=== PATIENT | female | born 1960 | race Caucasian/White ===

== ENCOUNTER 2019-11-30 21:08 | Inpatient (IN) | payer SELFPAY ==
--- NOTE | 2019-11-30 21:17 | XRR_ITS ---
PROCEDURE INFORMATION: Exam: XR Chest, 1 View Exam date and time: 11/30/2019 9:29 PM Age: 58 years old Clinical indication: Chest pain; Type not specified; Additional info: Cough, chest pain, od TECHNIQUE: Imaging protocol: XR of the chest Views: 1 view. COMPARISON: No relevant prior studies available. FINDINGS: Lungs: No lung consolidation or pulmonary edema. Pleural space: No pleural effusion or pneumothorax. Heart/Mediastinum: The cardiac silhouette is not enlarged. The mediastinal contours are normal. Bones/joints: No acute osseous abnormality. XR/XR chest 1V portable [id number] IMPRESSION: No acute abnormality.
--- NOTE | 2019-11-30 21:18 | ECG_ITS ---
Measurements Intervals [place] Rate: 61 P: 65 MT: 184 QRS: 58 QRSD: 90 T: 58 QT: 443 QTc: 446 SINUS RHYTHM No previous ECG available for comparison Electronically Signed On 12-01-2019 10:01:57 CDT by Bhavin Ward M.D. [id number]
--- NOTE | 2019-11-30 21:39 | W.ED.OVERDOS ---
HPI - Overdose General: Chief Complaint: Overdose Stated Complaint: OVERDOSE Time Seen by Provider: 11/30/19 21:10 History of Present Illness: HPI Narrative: Barbara is a 58-year-old female who comes in after she overdosed on trazodone. It is believed she may have taken as many as 1750 mg trazodone tablets. Initially EMS said the patient took these because she had not slept in 48 hours but when asked the patient tried to hurt herself she says yes I wish they would have let me go to sleep and never wake up. I just want to . Patient missed 2 previous suicide attempt in the past. When asked if she mix this with any other medicines or alcohol she states no. When asked what her reason is for taking this she states I do not want to talk about it . 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 Physical Exam Const: COMMON NORMALS: no apparent distress, oriented x3, no limitations, healthy appearing and well nourished EXAM LIMITATIONS: no altered mental status GENERAL APPEARANCE: cooperative, well kempt and well developed ORIENTATION/CONSCIOUSNESS: Yes awake HENMT: COMMON NORMALS: normocephalic, head/scalp atraumatic, hearing grossly normal bilaterally, external ears normal, EAC's normal, external nose normal and moist oral mucous membranes HEAD & SCALP: normal to inspection, normocephalic and atraumatic FACE & SINUS: normal facial exam and face symmetric NOSE: external nose normal and nares normal EXTERNAL EAR: Yes external ears normal EXTERNAL AUDITORY CANAL: EAC's normal MOUTH: oral and palatal mucosa normal and tongue normal Eye: COMMON NORMALS: PERRL, EOMs intact bilaterally, conjunctivae normal and no scleral icterus GENERAL EYE: normal appearance of both eyes and normal light reflex CONJUNCTIVA: Yes conjunctivae normal SCLERA: sclerae normal CORNEA: Yes corneas normal PUPIL: Yes PERRL DIRECT OPHTHALMOSCOPY: Yes normal light reflex Neck/C-Spine: COMMON NORMALS: full ROM, no lymphadenopathy, supple, no meningeal signs and no JVD GENERAL: Yes normal visual inspection and Yes trachea midline CERVICAL SPINE: Yes cervical ROM normal Chest: COMMONS NORMALS: inspection of chest normal and palpation of chest normal Resp: COMMON NORMALS: normal respiratory effort, no retractions, no use of accessory muscles and clear to auscultation bilaterally EFFORT & INSPECTION: Yes able to speak in complete sentences AUSCULTATION: clear to auscultation bilaterally Cardio: COMMON NORMALS: no JVD, regular rate, regular rhythm, S1 normal heart sound, S2 normal heart sound, no gallops, no clicks, no murmurs and no rub JUGULAR VENOUS DISTENTION: no JVD RATE: regular rate RHYTHM: regular rhythm HEART SOUNDS: S1 normal and S2 normal GI: COMMON NORMALS: soft to palpation, non-tender, no hepatosplenomegaly and no masses INSPECTION: Yes normal to inspection PALPATION: Yes soft and Yes no hepatosplenomegaly : COMMON NORMALS: Yes no CVA tenderness BLADDER/KIDNEY EXAM: Yes no CVA tenderness Back/Pelvis: COMMON NORMALS: no CVA tenderness, thoracic and lumbar spine normal to inspection, no thoracic nor lumbar tenderness and thoraco-lumbar ROM normal Extremity: COMMON NORMALS: normal to inspection, full ROM, normal capillary refill, no joint enlargement, no clubbing, cyanosis or edema and no calf tenderness Neuro: COMMON NORMALS: oriented x3, CN's II-XII intact bilaterally, moves all extremities, no focal motor deficits and no sensory deficits noted MENINGEAL SIGNS: Yes no meningeal signs Psych: COMMON NORMALS: mental status grossly normal, thought process normal, cooperative, affect normal, speech normal and activity/motor behavior normal APPEARANCE: Yes well kempt SPEECH: Yes normal speech THOUGHT PROCESS: normal thought process Skin: COMMON NORMALS: no rashes or lesions noted, skin turgor normal, no jaundice, no petechiae and no mottling GENERAL SKIN EXAM: no rashes or lesions noted and turgor normal Course Vital Signs: Vital signs: Vital Signs Temperature 98.4 F 11/30/19 21:47 Pulse Rate 66 11/30/19 23:29 Respiratory Rate 18 11/30/19 23:29 Blood Pressure 103/71 11/30/19 23:29 Pulse Oximetry 95 11/30/19 23:29 MDM - Overdose MDM Narrative: Medical decision making narrative: The case was reviewed with poison control. They recommend observation as the patient was taken almost twice the upper limits of allowed dose. Patient remains with a GCS of 15 here. So far she has not shown any sign of QT prolongation, central nervous system depression, serotonin syndrome or seizures. Lab Data: Attestation: I reviewed the patient's lab results. Labs: Lab Results 11/30/19 11/30/19 11/30/19 Range/Units 19:44 21:24 21:24 WBC (4.0-10.0) 10^3/ uL RBC (4.1-5.3) 10^6/u L Hgb (11.5-15.3) g/dL Hct (37.0-47.0) % MCV (81-99) fL MCH (28.0-34.0) pg MCHC (30.0-36.0) g/dL RDW (12.1-15.1) % Plt Count (130-400) 10^3/c mm MPV (7.4-10.4) fL Neut % (Auto) % Lymph % (Auto) % [place] % (Auto) % Eos % (Auto) % Baso % (Auto) % Neut # (Auto) (1.8-7.7) 10^3/u L Lymph # (Auto) (0.8-4.8) 10^3/u L [place] # (Auto) (0.2-0.9) 10^3/u L Eos # (Auto) (0.0-0.8) 10^3/u L Baso # (Auto) (0.0-0.1) 10^3/u L Nucleated RBC % (a uto) % Nucleated RBCs # /100WBC Specimen Type Arterial Sample Site Radial, left ABG pH 7.38 (7.35-7.45) ABG pCO2 40.2 (35-45) mmHg ABG pO2 66.3 L (80.0-100.0) mmH g ABG HCO3 23.5 (22-26) mmol/L ABG Base Excess -1.6 (-2.0-2.0) mmol/ L Mariano Test Pos Hematocrit 38.9 (37-47) % O2 Delivery Device Room air Hand Cooper Helper ID harkr Sodium 136 (136-145) mmol/L Potassium 3.4 L (3.5-5.1) mmol/L Chloride 98 (98-107) mmol/L Carbon Dioxide 23 (22-29) mmol/L Anion Gap 18.4 (5-19) BUN 11 (6-20) mg/dL Creatinine 0.7 (0.5-0.9) mg/dL GFR Calculation 86.2 L (90-130) mL/min Glucose 92 (65-115) mg/dL Calculated Osmolal ity 278 L (285-295) mOsm/k g Calcium 9.1 (8.5-10.5) mg/dL Magnesium 2.3 (1.7-2.3) mg/dL Total Bilirubin 0.2 (0.15-1.2) mg/dL AST 14 (0-32) U/L ALT 12 (0-33) U/L Alkaline Phosphata se 87 (35-105) IU/L Ammonia (11-51) umol/L Creatine Kinase 92 (26-192) U/L Troponin T Baselin e (0-10) ng/mL Total Protein 6.9 (6.6-8.7) g/dL Albumin 4.6 (3.5-5.2) g/dL Globulin 2.3 (1.3-4.6) g/dL TSH 1.09 (0.27-4.20) uIU/ mL HCG, Qual (Negative) Urine Color (Yellow) Urine Appearance (CLEAR) Urine pH (5-7) Ur Specific Gravit y (1.005-1.030) Urine Protein (Negative) Urine Glucose (UA) (Normal) Urine Ketones (Negative) Urine Blood (Negative) Urine Nitrate (Negative) Urine Bilirubin (NEGATIVE) Urine Urobilinogen (Negative) mg/dL Ur Leukocyte Opal ase (Negative) Urine RBC (0-2) /hpf Urine WBC (0-5) /hpf Ur Squamous Epith Cells (0-5) Urine Bacteria (NONE) Salicylates < 0.3 L (3-10) mg/dL Urine Opiates Scre en (Negative) ng/mL Acetaminophen < 5.0 L (10-30) ug/mL Ur Barbiturates Sc reen (Negative) ng/mL Phenytoin 0.8 L (10-20) ug/mL Valproic Acid 2.8 L (50-100) mcg/mL Carbamazepine 2.0 L (4.0-12.0) ug/mL Ur Phencyclidine S crn (Negative) ng/mL Ur Amphetamines Sc reen (Negative) ng/mL U Benzodiazepines Scrn (Negative) ng/mL [place] 0.1 L (0.6-1.2) mmol/L Urine Cocaine Scre en (Negative) ng/mL U Marijuana (THC) Screen (Negative) ng/mL Ethyl Alcohol 156 H (0-10) mg/dL 11/30/19 11/30/19 11/30/19 Range/Units 21:24 21:24 21:24 WBC 6.7 (4.0-10.0) 10^3/ uL RBC 4.05 L (4.1-5.3) 10^6/u L Hgb 12.3 (11.5-15.3) g/dL Hct 37.6 (37.0-47.0) % MCV 92.8 (81-99) fL MCH 30.4 (28.0-34.0) pg MCHC 32.7 (30.0-36.0) g/dL RDW 11.6 L (12.1-15.1) % Plt Count 195 (130-400) 10^3/c mm MPV 9.0 (7.4-10.4) fL Neut % (Auto) 63.8 % Lymph % (Auto) 27.7 % [place] % (Auto) 7.0 % Eos % (Auto) 0.0 % Baso % (Auto) 0.0 % Neut # (Auto) 4.3 (1.8-7.7) 10^3/u L Lymph # (Auto) 1.9 (0.8-4.8) 10^3/u L [place] # (Auto) 0.5 (0.2-0.9) 10^3/u L Eos # (Auto) 0.0 (0.0-0.8) 10^3/u L Baso # (Auto) 0.0 (0.0-0.1) 10^3/u L Nucleated RBC % (a uto) 0 % Nucleated RBCs # 0.0 /100WBC Specimen Type Sample Site ABG pH (7.35-7.45) ABG pCO2 (35-45) mmHg ABG pO2 (80.0-100.0) mmH g ABG HCO3 (22-26) mmol/L ABG Base Excess (-2.0-2.0) mmol/ L Mariano Test Hematocrit (37-47) % O2 Delivery Device Hand Cooper Helper ID Sodium (136-145) mmol/L Potassium (3.5-5.1) mmol/L Chloride (98-107) mmol/L Carbon Dioxide (22-29) mmol/L Anion Gap (5-19) BUN (6-20) mg/dL Creatinine (0.5-0.9) mg/dL GFR Calculation (90-130) mL/min Glucose (65-115) mg/dL Calculated Osmolal ity (285-295) mOsm/k g Calcium (8.5-10.5) mg/dL Magnesium (1.7-2.3) mg/dL Total Bilirubin (0.15-1.2) mg/dL AST (0-32) U/L ALT (0-33) U/L Alkaline Phosphata se (35-105) IU/L Ammonia 16 (11-51) umol/L Creatine Kinase (26-192) U/L Troponin T Baselin e 6 (0-10) ng/mL Total Protein (6.6-8.7) g/dL Albumin (3.5-5.2) g/dL Globulin (1.3-4.6) g/dL TSH (0.27-4.20) uIU/ mL HCG, Qual (Negative) Urine Color (Yellow) Urine Appearance (CLEAR) Urine pH (5-7) Ur Specific Gravit y (1.005-1.030) Urine Protein (Negative) Urine Glucose (UA) (Normal) Urine Ketones (Negative) Urine Blood (Negative) Urine Nitrate (Negative) Urine Bilirubin (NEGATIVE) Urine Urobilinogen (Negative) mg/dL Ur Leukocyte Opal ase (Negative) Urine RBC (0-2) /hpf Urine WBC (0-5) /hpf Ur Squamous Epith Cells (0-5) Urine Bacteria (NONE) Salicylates (3-10) mg/dL Urine Opiates Scre en (Negative) ng/mL Acetaminophen (10-30) ug/mL Ur Barbiturates Sc reen (Negative) ng/mL Phenytoin (10-20) ug/mL Valproic Acid (50-100) mcg/mL Carbamazepine (4.0-12.0) ug/mL Ur Phencyclidine S crn (Negative) ng/mL Ur Amphetamines Sc reen (Negative) ng/mL U Benzodiazepines Scrn (Negative) ng/mL [place] (0.6-1.2) mmol/L Urine Cocaine Scre en (Negative) ng/mL U Marijuana (THC) Screen (Negative) ng/mL Ethyl Alcohol (0-10) mg/dL 11/30/19 11/30/19 11/30/19 Range/Units 21:24 21:59 21:59 WBC (4.0-10.0) 10^3/ uL RBC (4.1-5.3) 10^6/u L Hgb (11.5-15.3) g/dL Hct (37.0-47.0) % MCV (81-99) fL MCH (28.0-34.0) pg MCHC (30.0-36.0) g/dL RDW (12.1-15.1) % Plt Count (130-400) 10^3/c mm MPV (7.4-10.4) fL Neut % (Auto) % Lymph % (Auto) % [place] % (Auto) % Eos % (Auto) % Baso % (Auto) % Neut # (Auto) (1.8-7.7) 10^3/u L Lymph # (Auto) (0.8-4.8) 10^3/u L [place] # (Auto) (0.2-0.9) 10^3/u L Eos # (Auto) (0.0-0.8) 10^3/u L Baso # (Auto) (0.0-0.1) 10^3/u L Nucleated RBC % (a uto) % Nucleated RBCs # /100WBC Specimen Type Sample Site ABG pH (7.35-7.45) ABG pCO2 (35-45) mmHg ABG pO2 (80.0-100.0) mmH g ABG HCO3 (22-26) mmol/L ABG Base Excess (-2.0-2.0) mmol/ L Mariano Test Hematocrit (37-47) % O2 Delivery Device Hand Cooper Helper ID Sodium (136-145) mmol/L Potassium (3.5-5.1) mmol/L Chloride (98-107) mmol/L Carbon Dioxide (22-29) mmol/L Anion Gap (5-19) BUN (6-20) mg/dL Creatinine (0.5-0.9) mg/dL GFR Calculation (90-130) mL/min Glucose (65-115) mg/dL Calculated Osmolal ity (285-295) mOsm/k g Calcium (8.5-10.5) mg/dL Magnesium (1.7-2.3) mg/dL Total Bilirubin (0.15-1.2) mg/dL AST (0-32) U/L ALT (0-33) U/L Alkaline Phosphata se (35-105) IU/L Ammonia (11-51) umol/L Creatine Kinase (26-192) U/L Troponin T Baselin e (0-10) ng/mL Total Protein (6.6-8.7) g/dL Albumin (3.5-5.2) g/dL Globulin (1.3-4.6) g/dL TSH (0.27-4.20) uIU/ mL HCG, Qual Negative (Negative) Urine Color Yellow (Yellow) Urine Appearance Clear (CLEAR) Urine pH 5 (5-7) Ur Specific Gravit y 1.020 (1.005-1.030) Urine Protein Neg (Negative) Urine Glucose (UA) Norm (Normal) Urine Ketones Negative (Negative) Urine Blood 2+ H (Negative) Urine Nitrate Negative (Negative) Urine Bilirubin Neg (NEGATIVE) Urine Urobilinogen Norm (Negative) mg/dL Ur Leukocyte Opal ase Negative (Negative) Urine RBC 0-4 H (0-2) /hpf Urine WBC Rare (0-5) /hpf Ur Squamous Epith Cells Rare (0-5) Urine Bacteria Trace (NONE) Salicylates (3-10) mg/dL Urine Opiates Scre en Negative (Negative) ng/mL Acetaminophen (10-30) ug/mL Ur Barbiturates Sc reen Negative (Negative) ng/mL Phenytoin (10-20) ug/mL Valproic Acid (50-100) mcg/mL Carbamazepine (4.0-12.0) ug/mL Ur Phencyclidine S crn Negative (Negative) ng/mL Ur Amphetamines Sc reen Negative (Negative) ng/mL U Benzodiazepines Scrn Negative (Negative) ng/mL [place] (0.6-1.2) mmol/L Urine Cocaine Scre en Negative (Negative) ng/mL U Marijuana (THC) Screen Negative (Negative) ng/mL Ethyl Alcohol (0-10) mg/dL EKG Data^: EKG 1: Attestation: I personally reviewed and interpreted this EKG as follows: EKG interpretation date: 11/30/19 EKG interpretation time: 21:37 Interpretation: Normal sinus rhythm at 61 beats a minute, nonspecific ST-T wave changes, no blocks, normal intervals. Discharge Plan Discharge Patient Disposition: Admitted As Inpatient Clinical Impression: Suicidal ideation Drug overdose Qualifiers: Encounter type: initial encounter Injury intent: intentional self-harm Qualified Code(s): T50.902A - Poisoning by unspecified drugs, medicaments and biological substances, intentional self-harm, initial encounter Condition: Stable Coding Level of Care Code ED Email Marketing Assistant for Leilani Fwoctavio Exam Comprehensive
[2019-11-30 21:42] LABS: Hematocrit 37.6 % (37.0-47.0); Hemoglobin 12.3 g/dL (11.5-15.3); Lymphocytes # 1.9 10^3/uL (0.8-4.8); Lymphocytes % 27.7 %; Mean Corpuscular HGB Conc 32.7 g/dL (30.0-36.0); Mean Corpuscular Hemoglobin 30.4 pg (28.0-34.0); Mean Corpuscular Volume 92.8 fL (81-99); Monocytes # 0.5 10^3/uL (0.2-0.9); Neutrophils # 4.3 10^3/uL (1.8-7.7); Neutrophils % 63.8 %; Nucleated Red Blood Cells % 0 %; Platelet Count 195 10^3/cmm (130-400); Red Blood Count 4.05 10^6/uL (4.1-5.3); Red Cell Distribution Width 11.6 % (12.1-15.1); White Blood Count 6.7 10^3/uL (4.0-10.0)
[2019-11-30] MEDS: ondansetron 2 mg/ML SDV 2 mL 4 MG IVP (21:44)
[2019-11-30] MEDS: sodium chloride 0.9% 1,000 ML 100 ML IV (21:44)
[2019-11-30 21:47] VITALS: BP 117/85; PULSE 62; RESP 15; TEMP 36.9; O2SAT 95; BMI 25.0
[2019-11-30 21:55] LABS: HCG, Serum Qual Negative (Negative)
[2019-11-30 21:59] LABS: ABG PCO2 40.2 mmHg (35-45); ABG PH Result 7.38 (7.35-7.45); Arterial Blood Gas Hematocrit 38.9 % (37-47); Base Excess ABG -1.6 mmol/L (-2.0-2.0); Blood Gas Allen Test Pos; Blood Gas Sample Site Radial, left; Blood Gas Sample Type Arterial; HCO3 ABG 23.5 mmol/L (22-26); Oxygen Device ROOM AIR; PO2 ABG 66.3 mmHg (80.0-100.0)
[2019-11-30 22:02] LABS: Ammonia 16 umol/L (11-51); Troponin(5th) Baseline 6 ng/mL (0-10)
[2019-11-30 22:03] LABS: Lithium 0.1 mmol/L (0.6-1.2)
[2019-11-30 22:08] LABS: Alanine Aminotransferase 12 U/L (0-33); Albumin Level 4.6 g/dL (3.5-5.2); Alcohol Level 156 mg/dL (0-10); Alkaline Phosphatase 87 IU/L (35-105); Anion Gap 18.4 (5-19); Aspartate Amino Transferase 14 U/L (0-32); Blood Urea Nitrogen 11 mg/dL (6-20); Calcium 9.1 mg/dL (8.5-10.5); Carbon Dioxide 23 mmol/L (22-29); Chloride 98 mmol/L (98-107); Creatine Phosphokinase 92 U/L (26-192); Globulin 2.3 g/dL (1.3-4.6); Glomerular Filtration Rate 86.2 mL/min (90-130); Glucose 92 mg/dL (65-115); Magnesium 2.3 mg/dL (1.7-2.3); Osmolality Calculated 278 mOsm/kg (285-295); Phenytoin Dilantin 0.8 ug/mL (10-20); Potassium 3.4 mmol/L (3.5-5.1); Sodium 136 mmol/L (136-145); Thyroid Stimulating Hormone 1.09 uIU/mL (0.27-4.20); Total Bilirubin 0.2 mg/dL (0.15-1.2); Total Protein 6.9 g/dL (6.6-8.7); Valproic Acid Level 2.8 mcg/mL (50-100)
[2019-11-30 22:11] LABS: Acetaminophen < 5.0 ug/mL (10-30); Salicylate < 0.3 mg/dL (3-10)
[2019-11-30 22:37] LABS: Bacteria Urine TRACE; Bilirubin Urine Neg (NEGATIVE); Blood Urine 2+ (Negative); Glucose Urine UA Norm (Normal); Ketones Urine Negative (Negative); Leukocyte Esterase Urine Negative (Negative); Nitrate Urine Negative (Negative); Protein Urine Neg (Negative); RBC Urine 0-4 /hpf (0-2); Squamous Epithelial Cell Urine RARE (0-5); Urine Appearance Clear (CLEAR); Urine Color Yellow (Yellow); Urobilinogen Urine Norm (Negative); WBC Urine RARE /hpf (0-5); pH Urine 5 (5-7)
[2019-11-30 22:41] LABS: Amphetamines Screen Urine Negative (Negative); Barbiturates Screen Urine Negative (Negative); Benzodiazepines Screen Urine Negative (Negative); Cocaine Screen Urine Negative (Negative); Opiate Screen Urine Negative (Negative); PCP Screen Urine Negative (Negative); THC Screen Urine Negative (Negative)
[2019-11-30] MEDS: potassium chloride premix 40 MEQ/100 ML PREMIX 25 MEQ IV (22:57)
[2019-11-30 23:00] VITALS: BP 116/70; PULSE 60; RESP 18; O2SAT 94
--- NOTE | 2019-11-30 23:02 | PC.NURSE ---
Nurse at bedside giving meds.
[2019-11-30 23:18] VITALS: BP 93/58; PULSE 64; RESP 20; O2SAT 95
--- NOTE | 2019-11-30 23:18 | ECG_ITS ---
Measurements Intervals [place] Rate: 66 P: 68 ND: 195 QRS: 65 QRSD: 86 T: 71 QT: 449 QTc: 472 SINUS RHYTHM No previous ECG available for comparison Electronically Signed On 12-01-2019 10:02:26 CDT by Bhavin Ward M.D. [id number]
--- NOTE | 2019-11-30 23:19 | PC.NURSE ---
Nurse has been notified of change in blood pressure
--- NOTE | 2019-11-30 23:20 | PM.HP ---
Providers/Chief Complaint Chief Complaint: OVERDOSE History of Present Illness Barbara Tidwell is a 58 year old female who carries diagnosis of major depression, came in after drug overdose. 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 She took 17 to 20 tablets of trazodone 150 mg as suicidal attempt. She lives with her brother at the moment, she is not sure who called EMS for her. She is stating that she thinks about ending her life on daily basis, no specific plans or thoughts but she thinks about that. She is stating that she is not willing to discuss why today's event happened. She is denying chest pain, shortness of breath, nausea, vomiting, dysuria. She he does not talk with her children who are in [facility] and [place]. Diagnostics in ER revealed normal hemodynamics, no QTC prolongation, EKG was normal, blood work normal other than hypokalemia, poison control was called who recommended monitoring in ICU overnight watch for seizure, QTC prolongation, confusion, CT MANAGER depression, and recommended keeping potassium and magnesium above 4 and 2 respectively Patient was very cooperative and calm at the time of interview Review of Systems Const: Denies: fever or chills Eyes: Denies: change in vision or blurry vision ENMT: Denies: throat pain or uvular edema Card: Denies: chest pain or palpitations Resp: Denies: shortness of breath or productive cough GI: Denies: abdominal pain, nausea or vomiting : Denies: flank pain, difficulty urinating or urinary frequency Musc: Denies: neck pain or back pain Skin/Breast: Reports: rash and new lesion (Lesion at right ankle); Denies: itching or redness Neuro: Denies: headache Psych: Reports: depression, mood swings, panic attacks, hopelessness and suicidal ideation; Denies: homicidal ideation Endo: Denies: excessive urination [place]/Lymph: Denies: easy bruising All/Imm: Denies: hives Medications/Allergies Home Medications Medication Instructions Recorded Confirmed Last Taken Type clonazepam 0.5 mg PO TID PRN 11/30/19 11/30/19 11/30/19 History montelukast 10 mg PO DAILY 11/30/19 11/30/19 11/30/19 History pantoprazole 40 mg PO DAILY 11/30/19 11/30/19 11/30/19 History ropinirole 1 mg PO DAILY 11/30/19 11/30/19 11/30/19 History tramadol 50 mg PO Q4H PRN 11/30/19 11/30/19 11/30/19 History trazodone 150 mg PO BEDTIME PRN 11/30/19 11/30/19 11/30/19 History Allergies Allergy/AdvReac Type Severity Reaction Status Date / Time codeine Allergy ADR-Vomitin Verified 11/30/19 21:24 g tizanidine [From Zanaflex] Allergy ALGY-Anaphy Verified 11/30/19 21:34 laxis PFSH Acute PFSH: Medical History (Updated 11/30/19 @ 23:59 by Royal Jefferson MD) Chronic pain Depression Hallucination Hypertension Hypoglycemia Panic disorder Surgical History (Updated 11/30/19 @ 23:59 by Royal Jefferson MD) H/O tubal ligation Family History (Updated 11/30/19 @ 23:59 by Royal Jefferson MD) Denies family history of Diabetes Clotting disorder Dementia Social History (Updated 12/01/19 @ 00:07 by Royal Jefferson MD) Smoking and tobacco status: former smoker Alcohol intake: current Alcohol intake frequency: few times a month Substance/Drug Use: never Household members: other Details: lives with her brother Housing: House Current occupational status: unemployed Current occupation: 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 Vitals/I&O/Wt Last Vital Signs Temp 98.4 F 11/30/19 21:47 Pulse 64 11/30/19 23:18 Resp 20 H 11/30/19 23:18 BP 93/58 11/30/19 23:18 Pulse Ox 95 11/30/19 23:18 Weight last 48 hrs Weight 68.039 kg Physical Exam Narrative: EXAM NARRATIVE: Cooperative female sitting comfortable in her bed Normal hemodynamics S1, S2 no tachycardia or signs of heart failure, QTC 470 Abdomen soft nontender nondistended Neurologically nonfocal exam Lungs are clear to auscultation Awake alert oriented x3, GCS 15 Endorses suicidal ideation EOMI, PERRLA Hyperemic right ankle without active signs of cellulitis Depressed mood Data : 11/30/19 21:24 11/30/19 21:24 A&P Assessment and plan (1) Drug overdose: Status: Acute Qualifiers: Encounter type: initial encounter Injury intent: intentional self-harm Qualified Code(s): T50.902A - Poisoning by unspecified drugs, medicaments and biological substances, intentional self-harm, initial encounter (2) Suicidal ideation: Status: Acute Additional A&P Information Drug overdose/suicidal attempt She took 17-20 tablets of trazodone 150 mg, suicidal attempt Major depressive disorder 96-hour hold I would hold her home medications at this point, monitor QTC in ICU, potassium repleted in ER, able to protect her airways currently awake alert GCS 15, magnesium 2.3 She will need psychiatry consult in the morning once medically cleared Patient is endorsing hypoglycemic events in the past few weeks Currently blood sugar is 92, asymptomatic, denies taking insulin TSH normal, Low risk for [place] Alcohol abuse Current alcohol level 156 Patient is endorsing drinking alcohol occasionally I will keep Ativan p.o. for as needed use Thiamine and folic acid Full code 96-hour hold Consistent carbohydrate diet Attestations Medical Necessity Statement*: 96-hour hold secondary to suicidal attempt Time Spent in Patient Care: 50 Coding Level of Care Code Acute Hand Washer for Ginnag Fwd Diagnoses Drug overdose T50.902A Encounter type: initial encounter Injury intent: intentional self-harm Suicidal ideation R45.851
[2019-11-30 23:29] VITALS: BP 103/71; PULSE 66; RESP 18; O2SAT 95
[2019-11-30 23:50] VITALS: BP 98/67; PULSE 76; RESP 17; O2SAT 97
--- NOTE | 2019-11-30 23:51 | PC.NURSE ---
EKG done at 2345 and shown to ER doctor
[2019-11-30 23:56] LABS: Troponin 5 2HR Delta 0 ABS# (0-10)
[2019-12-01] VITALS (54 sets, daily range): BP systolic 77–128; BP diastolic 45–72; PULSE 60–86; RESP 14–27; TEMP 36.5–37.4; O2SAT 91–98; BMI 25.0
--- NOTE | 2019-12-01 00:17 | PC.NURSE ---
retook blood pressure to ensure accuracy.
[2019-12-01] MEDS: enoxaparin 40 mg/0.4 mL Syringe SUBCUT (01:18)
[2019-12-01] MEDS: LORazepam 1 mg Tablet PO (01:18)
[2019-12-01] MEDS: thiamine 100 mg Tablet PO (01:18)
[2019-12-01] MEDS: ropinirole 1 mg Tablet PO ×2 (01:34→20:43)
--- NOTE | 2019-12-01 01:40 | PC.NURSE ---
upon receiving patient from ER, patient stated people always think that I am being funny when I really feel like I'm lost in my head. When asking patient how long she has been thinking about attempting suicide, patient stated A few months. I just don't know why I feel like this and why it doesn't go away. 1:1 sitter at bedside. Home medications labeled and placed in [facility]. Patient belongings labeled and placed in dictation room.
--- NOTE | 2019-12-01 03:18 | ECG_ITS ---
Measurements Intervals [place] Rate: 77 P: 73 ID: [id number] QRS: 69 QRSD: 84 T: 73 QT: 411 QTc: 465 SINUS RHYTHM LOW QRS VOLTAGE IN PRECORDIAL LEADS [QRS DEFLECTION < 1.0 mV IN CHEST LEADS] No previous ECG available for comparison Electronically Signed On 12-01-2019 10:02:29 CDT by Bhavin Ward M.D. [id number]
[2019-12-01 04:26] LABS: Hematocrit 34.9 % (37.0-47.0); Hemoglobin 11.7 g/dL (11.5-15.3); Lymphocytes # 1.5 10^3/uL (0.8-4.8); Lymphocytes % 35.9 %; Mean Corpuscular HGB Conc 33.5 g/dL (30.0-36.0); Mean Corpuscular Hemoglobin 30.9 pg (28.0-34.0); Mean Corpuscular Volume 92.1 fL (81-99); Mean Platelet Volume 9.3 fL (7.4-10.4); Monocytes # 0.2 10^3/uL (0.2-0.9); Monocytes % 4.9 %; Neutrophils # 2.3 10^3/uL (1.8-7.7); Nucleated Red Blood Cells % 0 %; Platelet Count 178 10^3/cmm (130-400); Red Blood Count 3.79 10^6/uL (4.1-5.3); Red Cell Distribution Width 11.8 % (12.1-15.1); White Blood Count 4.1 10^3/uL (4.0-10.0)
[2019-12-01 04:46] LABS: Alanine Aminotransferase 10 U/L (0-33); Albumin Level 4.3 g/dL (3.5-5.2); Alkaline Phosphatase 77 IU/L (35-105); Anion Gap 17.4 (5-19); Aspartate Amino Transferase 12 U/L (0-32); Blood Urea Nitrogen 8 mg/dL (6-20); Calcium 8.9 mg/dL (8.5-10.5); Carbon Dioxide 25 mmol/L (22-29); Chloride 107 mmol/L (98-107); Globulin 2.2 g/dL (1.3-4.6); Glomerular Filtration Rate 86.2 mL/min (90-130); Glucose 99 mg/dL (65-115); Osmolality Calculated 296 mOsm/kg (285-295); Potassium 4.4 mmol/L (3.5-5.1); Sodium 145 mmol/L (136-145); Total Bilirubin 0.2 mg/dL (0.15-1.2); Total Protein 6.5 g/dL (6.6-8.7)
[2019-12-01 07:58] LABS: Magnesium 2.3 mg/dL (1.7-2.3)
[2019-12-01] MEDS: folic acid 1 mg Tablet PO (09:09)
--- NOTE | 2019-12-01 10:30 | P.PN_ITS ---
Subjective Subjective: Interval history: Patient reports feeling slightly better this morning she denies any shortness of breath or chest pain she denies any abdominal pain. She reports off-and-on having episodes of hyperactivity and depression. Reports that she has not been able to sleep much in the last 2 weeks. Reports that 6 months ago someone told her to stop her depression medications and she did. Looking back she thinks that her medications were likely helpful. She lives with her brother and has 2 children which she is in contact over the phone every day although she told admitting physician otherwise. QTc 465 checked at night. She ate breakfast this morning and has normal oral intake. She is depressed on exam. She is a 96-hour hold and has sitter. Vitals/I&O/Wt Last Vital Signs Temp 97.7 F 12/01/19 01:00 Pulse 79 12/01/19 10:00 Resp 16 12/01/19 10:00 BP 95/54 12/01/19 10:00 Pulse Ox 92 12/01/19 10:00 11/30/19 12/01/19 12/01/19 22:59 06:59 14:59 Intake Total 100 / 100 360 / 360 Output Total 1400 / 1400 Balance -1300 / -1300 360 / 360 Weight last 48 hrs Weight 68.039 kg Physical Exam Const: COMMON NORMALS: no apparent distress and oriented x3 Resp: COMMON NORMALS: normal respiratory effort and clear to auscultation bilaterally AUSCULTATION: clear to auscultation bilaterally Cardio: COMMON NORMALS: regular rate, regular rhythm and S2 normal heart sound RATE: regular rate RHYTHM: regular rhythm HEART SOUNDS: S2 normal OTHER: No lower extremity edema GI: COMMON NORMALS: normal to inspection, nondistended, normoactive bowel sounds, soft to palpation and non-tender PALPATION: Yes soft Neuro: COMMON NORMALS: oriented x3 and no focal motor deficits Data : 12/01/19 03:08 12/01/19 03:08 A&P Assessment and plan (1) Drug overdose: Status: Acute Qualifiers: Encounter type: initial encounter Injury intent: intentional self-harm Qualified Code(s): T50.902A - Poisoning by unspecified drugs, medicaments and b iological substances, intentional self-harm, initial encounter (2) Suicidal ideation: Status: Acute Additional A&P Information Drug overdose/suicidal attempt She took 17-20 tablets of trazodone 150 mg, suicidal attempt Major depressive disorder 96-hour hold I would hold her home medications at this point, monitor QTC in ICU, potassium repleted in ER, able to protect her airways currently awake alert GCS 15, magnesium 2.3 She will need psychiatry consult in the morning once medically cleared Patient is endorsing hypoglycemic events in the past few weeks Currently blood sugar is 92, asymptomatic, denies taking insulin TSH normal, Low risk for [place] Alcohol abuse Current alcohol level 156 Patient is endorsing drinking alcohol occasionally I will keep Ativan p.o. for as needed use Thiamine and folic acid PLAN: Discussed with Dr. Nelson and we will transfer patient to neuropsychiatric unit as patient is currently medically stable. Her blood pressure in the 90s over 60s. We will repeat EKG to evaluate QT interval and if normal we will proceed with transfer. Will initiate CIWA protocol and let Dr. Nelson start antidepressant/mood stabilizer treatment. Full code 96-hour hold Consistent carbohydrate diet Attestations Medical Necessity Statement*: Patient with suicidal attempt requires close inpatient monitoring and treatment. 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
--- NOTE | 2019-12-01 10:48 | ECG_ITS ---
Measurements Intervals [place] Rate: 78 P: 66 ID: [id number] QRS: 72 QRSD: 79 T: 64 QT: 375 QTc: 430 SINUS RHYTHM LOW QRS VOLTAGE IN PRECORDIAL LEADS [QRS DEFLECTION < 1.0 mV IN CHEST LEADS] WARNING: DATA QUALITY MAY AFFECT INTERPRETATION Compared to ECG 12/01/2019 03:07:50 No significant changes Electronically Signed On 12-02-2019 8:21:39 CDT by Bhavin Ward M.D. [email or web address]
--- NOTE | 2019-12-01 13:00 | PC.NURSE ---
To NPU per wheelchair with staff, chart and belongings
[2019-12-01] MEDS: doxepin 10 mg Capsule PO (20:43)
[2019-12-02 06:07] VITALS: BP 101/60; PULSE 66; RESP 17; TEMP 36.7; O2SAT 95
[2019-12-02] MEDS: folic acid 1 mg Tablet PO (08:59)
[2019-12-02] MEDS: thiamine 100 mg Tablet PO (08:59)
[2019-12-02 09:24] VITALS: BP 110/70; PULSE 72; RESP 18; TEMP 36.7; O2SAT 96
[2019-12-02 13:08] VITALS: BP 108/72; PULSE 70; RESP 18; TEMP 36.7; O2SAT 97
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
[2019-12-02] MEDS: lamoTRIgine 25 mg Tablet PO (17:38)
[2019-12-02 20:41] VITALS: BP 105/75; PULSE 79; RESP 18; TEMP 37.1; O2SAT 96
[2019-12-02] MEDS: doxepin 10 mg Capsule PO (21:08)
[2019-12-02] MEDS: ropinirole 1 mg Tablet PO (22:45)
[2019-12-03 06:00] VITALS: BP 113/76; PULSE 68; RESP 20; TEMP 36.8; O2SAT 97
[2019-12-03] MEDS: lamoTRIgine 25 mg Tablet PO (08:33)
[2019-12-03] MEDS: thiamine 100 mg Tablet PO (08:33)
[2019-12-03] MEDS: folic acid 1 mg Tablet PO (08:33)
[2019-12-03 13:33] VITALS: BP 108/80; PULSE 85; RESP 18; TEMP 37.2; O2SAT 97
--- NOTE | 2019-12-03 14:32 | PM.NPN ---
Subjective NPU Subjective: Interval history: patient complains of one of the medications she is being given makes her feel hot and sweaty. She also would like to be referred for counseling and lives in [facility]. She denies having suicidal or homicidal thoughts at this time. She is able to identify her sources of stress though she has no specific steps to take to relieve the stress at this time. Mental Status Exam MSE Comments: This is a well-nourished, well-developed, white female, with adequate dress, grooming, and eye contact. No abnormal movements. Cooperative with exam in mild distress. Speech was decreased rate and volume. Mood described as depressed; affect congruent. Thought process, organized. Thought content: patient denied any suicidal or homicidal ideation, there were no delusions reported or noted, patient denied any auditory or visual hallucinations. Attention, concentration, and memory appear intact but were not formally tested. She is alert and oriented times three. Insight and judgment are fair. Vitals/I&O/Wt Last Vital Signs Temp 98.9 F 12/03/19 13:33 Pulse 85 12/03/19 13:33 Resp 18 12/03/19 13:33 BP 108/80 12/03/19 13:33 Pulse Ox 97 12/03/19 13:33 Weight last 48 hrs Weight 70.874 kg Data NPU : 12/01/19 03:08 12/01/19 03:08 A&P Additional A&P Information Assessment and plan (1) Drug overdose: This is an almost 59 year old, white female, with a long history of trauma, depression, anxiety, and significant struggles with relationships, who presents managing the stress of a recent disintegrated relationship, reporting that she is needing to get back on medications to stabilize. Continue current medication, except: continue Lamictal 25 mg po qam, and titrate to 100 mg over three weeks. Then follow up with that as an outpatient. replace BuSpar 15 mg po bid. with lorazepam 0.5 mg twice a day when necessary anxiety patient will discuss with social work opportunities for outpatient counseling if available and [facility] Continue q-15 minute checks for safety. Involuntary Hold Information 96 Hour Hold: 96 Hour Involuntary Admission: Yes 96 Hour Hold Ending Date: 12/07/19 96 Hour Hold Ending Time: 17:48 Attestations NPU Medical Necessity Statement*: patient will remain in the hospital another 1-2 nights for stabilization and efficacy of medications. 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
[2019-12-03] MEDS: LORazepam 0.5 mg Tablet PO (15:19)
[2019-12-03] MEDS: ibuprofen 200 mg Tablet 400 MG PO (15:22)
[2019-12-03 21:09] VITALS: BP 117/80; PULSE 72; RESP 20; TEMP 37.2; O2SAT 96
[2019-12-03] MEDS: ropinirole 1 mg Tablet PO (21:16)
[2019-12-03] MEDS: doxepin 10 mg Capsule PO (21:16)
--- NOTE | 2019-12-03 21:16 | PC.NURSE ---
Pt given scheduled Doxepin and Requip.
[2019-12-04 06:00] VITALS: BP 126/79; PULSE 67; RESP 17; TEMP 36.9; O2SAT 97
[2019-12-04] MEDS: folic acid 1 mg Tablet PO (08:23)
[2019-12-04] MEDS: lamoTRIgine 25 mg Tablet PO (08:24)
[2019-12-04] MEDS: thiamine 100 mg Tablet PO (08:24)
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
[2019-12-04 12:43] VITALS: BP 126/79; PULSE 67; RESP 17; TEMP 36.9; O2SAT 97
== END 2019-12-04 14:17 | disposition home or self-care (01) | DRG 918 ==
LOC: ER 23:27 → ICU 23:52 → NP 12-01 12:57
PROVIDERS: Internal Medicine; Admitting Provider Internal Medicine; Emergency Provider Emergency Medicine; Visit Provider Psychiatry & Neurology Psychiatry
DX: T43.212A Poisoning by selective serotonin and norepinephrine reuptake inhibitors, intentional self-harm, initial encounter (principal); Y92.009 Unspecified place in unspecified non-institutional (private) residence as the place of occurrence of the external cause; Z87.891 Personal history of nicotine dependence; G89.29 Other chronic pain; F32.9 Major depressive disorder, single episode, unspecified; I10 Essential (primary) hypertension; F43.11 Post-traumatic stress disorder, acute; F41.9 Anxiety disorder, unspecified
CPT/HCPCS: 12345; 36415; 36600; 71045; 80053; 80156; 80164; 80178; 80185; 80306; 80307; 81001; 82140; 82550; 82803; 83735; 84443; 84484; 84703; 85025; 93005; 96372; 96374; 99285; J1650; J2405; J3411; J3480; J7030

== ENCOUNTER → 2021-12-30 10:33 | Outpatient (BNVA) | payer OTHER, SELFPAY | PROVIDERS: Visit Provider Nurse Practitioner Family | DX: Z78.0 Asymptomatic menopausal state (principal); F41.0 Panic disorder [episodic paroxysmal anxiety]; G89.29 Other chronic pain; F32.9 Major depressive disorder, single episode, unspecified; I10 Essential (primary) hypertension; F41.9 Anxiety disorder, unspecified | CPT/HCPCS: 80053; 80061; 82306; 84443; 85025 ==